=== PATIENT | male | born 1960 | race Caucasian/White ===

== ENCOUNTER 2018-02-25 08:36 | Day surgery (SDC) | payer BC ==
[~2018-02-25] VITALS: Ht 177.8 cm; Wt 87.2 kg
[~2018-02-25 08:36] MED LIST: AMLO10TA2 PO; ENAL10TA PO; FOLI1TAB85 PO; SODIUM CHLORIDE 0.9% 1000ML 1,000 ML IV ONE
[2018-02-25 09:05] VITALS: BP 118/78
[2018-02-25] MEDS ORDERED: PROPOFOL 10 MG/ML 20ML VIAL IV ONE (10:36)
[2018-02-25 10:53] VITALS: BP 97/52
== END 2018-02-25 11:25 | disposition home or self-care (01) ==
LOC: ENDO 08:36 → DAH 08:36 → ENDO 11:25
PROVIDERS: ATTEND Internal Medicine Gastroenterology
DX: Z12.11 Encounter for screening for malignant neoplasm of colon (principal); N28.9 Disorder of kidney and ureter, unspecified; I10 Essential (primary) hypertension; Z68.38 Body mass index [BMI] 38.0-38.9, adult; K57.30 Diverticulosis of large intestine without perforation or abscess without bleeding
CPT/HCPCS: 45378; A4606; J2704; J7030

== ENCOUNTER 2024-08-18 07:01 | Day surgery (SDC) | payer MEDICARE ==
[2024-08-14 08:50] VITALS: BP 126/72; PULSE 68; RESP 17; TEMP 98.4
[2024-08-14 08:53] LABS: BASOPHILS # (AUTO) 0.06 K/uL (0.00-0.20); BASOPHILS % (AUTO) 0.8 % (0.0-5.0); EOSINOPHILS # (AUTO) 0.65 K/uL (0.00-0.70); EOSINOPHILS % (AUTO) 8.6 % (0.0-8.0); IMMATURE GRANULOCYTE ABSOLUTE 0.02 K/uL (0-1); LYMPHOCYTES # (AUTO) 1.8 K/uL (1.0-4.8); LYMPHOCYTES % (AUTO) 23.2 % (21.0-51.0); MEAN CORPUSCULAR HEMOGLOBIN 31.1 pg (27.0-33.0); MEAN CORPUSCULAR HGB CONC 31.9 g/dL (32.0-36.0); MEAN CORPUSCULAR VOLUME 97.4 fL (79-99); MONOCYTES # (AUTO) 0.6 K/uL (0.1-1.0); MONOCYTES % (AUTO) 7.7 % (3.0-13.0); NEUTROPHILS # (AUTO) 4.5 K/uL (1.8-7.7); NEUTROPHILS % (AUTO) 59.4 % (40.0-77.0); PLATELET COUNT (AUTO) 254 K/uL (130-400); RED BLOOD CELL COUNT(AUTO) 4.31 MIL/uL (4.50-6.20); RED CELL DISTRIBUTION WIDTH 13.3 % (11.0-15.5); WHITE BLOOD COUNT (AUTO) 7.6 K/uL (4.8-10.8)
[2024-08-14 09:04] LABS: CREATININE 1.7 mg/dL (0.5-1.3); POTASSIUM 4.7 mmol/L (3.5-5.1)
[2024-08-18] VITALS (12 sets, daily range): BP systolic 129–146; BP diastolic 68–84; PULSE 59–67; RESP 12–17; TEMP 97.9–98
[~2024-08-18] VITALS: Ht 177.8 cm; Wt 79.4 kg
[~2024-08-18 07:01] MED LIST changes: -AMLO10TA2 PO; +ENAL-89 PO; -ENAL10TA PO; -FOLI1TAB85 PO; +GLIP5TAB15 PO; +METF-444 PO; +ROSU10TA72 PO; -SODIUM CHLORIDE 0.9% 1000ML 1,000 ML IV ONE; +TAMS-1 PO
[2024-08-18] MEDS: 0.9%NACL 1000ML 1,000 ML IV ONE (08:25)
[2024-08-18] MEDS ORDERED: MIDAZOLAM HCL 1 MG/ML 2ML VIAL ONE (09:01)
[2024-08-18] MEDS ORDERED: FENTanyl CITRate PF 50 MCG/1 ML 2ML VIAL ONE (09:02)
[2024-08-18] MEDS ORDERED: ondanSETRON 4MG INJ ONE (09:24)
[2024-08-18] MEDS: ceFAZolin SODIUM 2 GM VIAL ONE (10:15)
[2024-08-18] MEDS: LIDOCAINE 1%-EPI 1:100,000 20 ML VIAL ONE (10:21)
== END 2024-08-18 12:39 | disposition home or self-care (01) ==
LOC: DAH 07:01
PROVIDERS: ATTEND Surgery
DX: L72.3 Sebaceous cyst (principal); I44.7 Left bundle-branch block, unspecified; I10 Essential (primary) hypertension; E78.5 Hyperlipidemia, unspecified; E11.9 Type 2 diabetes mellitus without complications; Z88.1 Allergy status to other antibiotic agents; Z79.84 Long term (current) use of oral hypoglycemic drugs; Z79.899 Other long term (current) drug therapy
CPT/HCPCS: 80048; 85025; 36415; 93005; 11403; 82948 ×2; 88304; A6260; A4663; J7030 ×2; A4452; J3010; J3490; J2250; J2405; J0690; A4930; A4215; A4223; A4222; A4221; A4600